=== PATIENT | male | born 2000 | race Caucasian/White ===

== ENCOUNTER 2019-08-24 10:33 | Outpatient (CLI) | payer OTHER, SELFPAY ==
--- NOTE | ~2019-08-24 | XR_ITS ---
EXAMINATION: XR soft tissue neck DATE: 08/24/2019 11:12 INDICATION: Throat pain. TECHNIQUE: 2 views of the neck soft tissues were obtained. COMPARISON: None. FINDINGS: The adenoids, palatine tonsils, prevertebral soft tissues, epiglottis, and airway are elias l. No radiopaque foreign body. IMPRESSION: 1. Normal neck soft tissues. Reviewed, dictated and finalized at location A.
--- NOTE | ~2019-08-24 | XR_ITS ---
EXAMINATION: XR barium swallow modified DATE: 08/24/2019 11:37 INDICATION: Pain in throat. TECHNIQUE: The patient was given barium-containing material of multiple consistencies to swallow by t jaden speech pathologist while I performed fluoroscopy. Fluoroscopy exposure time was 0.8 minutes. The n umber of fluoroscopy images saved to the PACS was 1. Dose-area product was 0.554 Gy-cm^2. FINDINGS: There was no laryngeal penetration or aspiration. IMPRESSION: 1. No laryngeal penetration or aspiration. 2. Please refer to the speech therapy report for recommendations. Reviewed, dictated and finalized at location A.
--- NOTE | 2019-08-24 13:01 | STOPEVAL ---
MODIFIED BARIUM SWALLOW EVALUATION: Thank you for referring Brad Allen to [facility]. Attending Provider: MD AVTAR Cameron Outpatient Evaluation Start: 08/24/19 12:38 Freq: Status: Active Protocol: Document 08/24/19 12:39 BECCLEMENTINART (Rec: 08/24/19 13:01 BECHERERT [email or web address]) Therapy Assessment Status Assessment Status Assessment Status Evaluation Outpatient Past Medical History Past Medical History No Past Medical/Surgical History Patient/Family Denies Significant Past Medical/ Surgical History Source of Past Medical History Patient Musculoskeletal History Hx Fractures Yes: tibia Hx Other Musculoskeletal Disorders Yes: shoulder repair Evaluation Information Problem Diagnosis throat pain Onset 6 months ago Pain Assessment Timing of Pain Assessment Timing of Pain Assessment Assessment Pain Scale Pain Scale Used Numeric (1 - 10) Self Report Pain Assessment Throat Reported Pain Level 4 Pain Score Pain Score 4: Self Report Modified Barium Swallow Evaluation Recent Swallowing History Reports Dysphagia No: denies choking or coughing ;throat pain Other Factors Impacting Dysphagia None Reported Difficult Consistencies Unable to Identify Intake Method Prior to Swallow Oral Evaluation Diet Prior to Swallow Evaluation Regular, Level 7 Liquid Consistency Prior to Swallow Thin (0) Evaluation Consistency Thin Uncontrolled 2 Method of Presentation Straw Oral Preparatory Symptoms None Oral Phase Symptoms None Pharyngeal Phase Symptoms None Severity of Vallecular Residue None - 0% No Residue Severity of Pyriform Sinus Residue None - 0% No Residue 8 Point Laryngeal Penetration-Aspiration Material Does Not Enter Airway Scale Cervical/Esophageal Symptoms None Thin Uncontrolled 1 Method of Presentation Cup Oral Preparatory Symptoms None Oral Phase Symptoms None Pharyngeal Phase Symptoms None Severity of Vallecular Residue None - 0% No Residue Severity of Pyriform Sinus Residue None - 0% No Residue 8 Point Laryngeal Penetration-Aspiration Material Does Not Enter Airway Scale Cervical/Esophageal Symptoms None Solid Consistency Uncontrolled 2 Other Amount cracker Method of Presentation Spoon Oral Preparatory Symptoms None Oral Phase Symptoms None Pharyngeal Phase Symptoms None Severity of Vallecular Residue None - 0% No Residue Severity of Pyriform Sinus Residue None - 0% No Residue 8 Point Laryngeal Penetration-Aspiration Material Does Not Enter Airway Scale
== END 2019-08-24 10:34 | disposition home or self-care (01) ==
PROVIDERS: PCP Internal Medicine; Visit Provider Internal Medicine
DX: R07.0 Pain in throat (principal)
CPT/HCPCS: 70360; 92611

== ENCOUNTER 2019-08-25 08:40 | Outpatient (CLI) | payer OTHER, SELFPAY ==
--- NOTE | ~2019-08-25 | XR_ITS ---
EXAMINATION: XR UGI wo kub DATE: 08/25/2019 09:14 INDICATION: Pain in throat. TECHNIQUE: The patient drank thick barium, gas-producing crystals, and thin barium. Fluoroscopy of th e esophagus, stomach, and proximal small bowel was performed. Fluoroscopy exposure time was 0.8 minut es. The total number of images was 233. Total dose-area product was 1.012 Gy-cm^2. COMPARISON: None. FINDINGS: There is no mass or stricture of the esophagus. Esophageal motility is normal. There is no hiatal hernia. There was no gastroesophageal reflux with provocative maneuvers. The stomach and proxi mal small bowel show normal folding patterns. IMPRESSION: 1. Normal upper gastrointestinal series. Reviewed, dictated and finalized at location A.
== END 2019-08-25 08:41 | disposition home or self-care (01) ==
LOC: ANHIMG 08:48
PROVIDERS: PCP Internal Medicine; Visit Provider Internal Medicine
DX: R07.0 Pain in throat (principal)
CPT/HCPCS: 74240

== ENCOUNTER 2020-01-06 16:56 | Outpatient (CLI) | payer OTHER, SELFPAY ==
--- NOTE | ~2020-01-06 | CT_ITS ---
EXAMINATION: CT sinus wo con DATE: 01/06/2020 17:18 INDICATION: Chronic sinusitis TECHNIQUE: Computed tomography (CT) of the paranasal sinuses was performed without intravenous contra st. Coronal reconstructions were obtained. Automated exposure control and iterative reconstruction te chnique were employed. The dose-length product was 324.57 mGy-cm. COMPARISON: None FINDINGS: Region of mild mucosal thickening in the bilateral maxillary sinuses. No mucosal thickening the remai nder of the paranasal sinuses. Bilateral ostiomeatal units are patent. Bilateral sania bullosa of th e middle turbinates. Nasal septum is midline. Bilateral mastoid air cells and middle ear cavities are clear. Bilateral orbits are normal. IMPRESSION: 1. Bilateral sania bullosa of the middle turbinates and small regions of mild mucosal thickening the bilateral maxillary sinuses. Reviewed, dictated and finalized at location A.
== END 2020-01-06 16:57 | disposition home or self-care (01) ==
PROVIDERS: PCP Internal Medicine; Visit Provider Internal Medicine
DX: J32.9 Chronic sinusitis, unspecified (principal); J34.89 Other specified disorders of nose and nasal sinuses
CPT/HCPCS: 70486

== ENCOUNTER 2021-08-08 12:54 | Emergency (ER) | payer OTHER, SELFPAY ==
--- NOTE | ~2021-08-08 | XR_ITS ---
XR foot LT min 3V 08/08/2021 13:09 INDICATION: Left foot pain after soccer injury PROCEDURE: 4 views left foot COMPARISON: No prior studies for comparison. FINDINGS: Fracture, dislocation or subluxation is not identified. Lisfranc joint intact. The soft tis sues appear within normal limits. No foreign bodies are identified. IMPRESSION: 1: NO ACUTE BONE OR JOINT ABNORMALITY IDENTIFIED. Reviewed, dictated and finalized at location A.
--- NOTE | 2021-08-08 12:57 | ED.LOWEXIN ---
HPI - Extremity Injury (Lower) General Chief Complaint: Extremity Injury, Lower Stated Complaint: left foot injury Time Seen by Provider: 08/08/21 12:57 Source: patient Mode of arrival: ambulatory Limitations: no limitations History of Present Illness HPI Narrative: Mr. Allen is a 21-year-old male patient presenting today with complaints of a left foot injury after playing soccer yesterday. He reports that he jumped up and came down on his foot and felt some pops. He thought at first it was his ankle that was injured but the top of his foot began to hurt. Reports some mild swelling and pain to touching the top of the foot near the ankle. Related Data Allergies Allergy/AdvReac Type Severity Reaction Status Date / Time mold Allergy Mild unknown Verified 06/12/21 15:52 Review of Systems Review of Systems: Pertinent positives per HPI. Patient denies any fever, chills, rash, headache, visual changes, dizziness, cough, runny nose, sore throat, shortness of breath, chest pain, palpitations, nausea, vomiting, diarrhea, constipation, abdominal pain, or any urinary issues. Is able to weight-bear with mild pain. PMFSH Past Medical History Medical History BMI 22.0-22.9, adult BMI 23.0-23.9, adult Depression Ear pain Follow up History of tremor No pertinent family history Seasonal allergies Throat pain Surgical History Surgical History History of orthopedic surgery shoulder and tibia repaired Family History Family History Other Diabetes mellitus Family history of rheumatoid arthritis Malignant neoplasm of prostate Social History Social History Smoking status: Never smoker Second hand tobacco smoke exposure: No Alcohol intake: current Comments At the time of my signature, I reviewed and agree with the nursing past medical, surgical, social, and family history. There is no relevant family history pertinent to the patient complaint. Exam Narrative: General: Well-developed, well nourished, in no apparent distress Head: Normocephalic, atraumatic Cardio: Regular rate and rhythm, s1 and s2 normal, no murmur appreciated. Resp: Clear to auscultation bilaterally, no rhonchi, rales, wheezing or rubs. Musculoskeletal: No deformity, tenderness to palpation of the left dorsal foot just superior of anterior ankle, mild swelling noted, pain with dorsiflexion against resistance, no pain with plantar flexion or valgus/varus testing, grossly normal range of motion, muscle strength strong and equal against resistance, pedal pulses strong, no cyanosis, normal gait and station Course Course Emergency Course: Portions of this record may have been created with voice recognition software. Level of Care: Express Care Visit Vital Signs Vital signs: Vital signs reviewed MDM - Extremity Injury (Lower) MDM Narrative Medical decision making narrative: At the time of assessment patient is resting comfortably on the exam table. After taking off his shoe and sock he has minimal swelling to the dorsal left foot. Tender to palpation over the dorsal left foot just superior of the ankle joint. No pain laterally or medially to the foot. Pain with dorsiflexion. X-ray was completed and was negative for any fractures or malalignment. I suspect foot sprain. Will give Nura wrap and explain rice treatment Differential Diagnosis Differential diagnosis: Likely ankle sprain and strain and other (Foot fracture, tendon tear, foot sprain) Imaging Data Attestation: I personally reviewed and interpreted this imaging study as follows: My impression: Negative for fracture or malalignment of the left foot Radiologist's impression: Express Care Zechariah Paz[address] [place] [address] [phone] XRay
[2021-08-08 13:24] VITALS: BP 132/68; PULSE 69; RESP 16; TEMP 36.6; O2SAT 98
== END 2021-08-08 13:25 | disposition home or self-care (01) ==
PROVIDERS: Emergency Provider Nurse Practitioner Family; PCP Internal Medicine
DX: S93.602A Unspecified sprain of left foot, initial encounter (principal); X50.9XXA Other and unspecified overexertion or strenuous movements or postures, initial encounter; Y93.66 Activity, soccer
CPT/HCPCS: 73630; 99213; G0463

== ENCOUNTER 2021-09-03 17:16 | Emergency (ER) | payer OTHER, SELFPAY ==
[2021-09-03 17:20] VITALS: BP 131/74; PULSE 71; RESP 20; TEMP 36.4; O2SAT 99
--- NOTE | 2021-09-03 17:56 | ED.MALEGU ---
HPI - Male Genitourinary General Chief complaint: Urogenital-Male Stated complaint: PAINFUL/FREQUENT URINATION Time Seen by Provider: 09/03/21 17:57 Source: patient, RN notes reviewed and old records reviewed Mode of arrival: ambulatory Limitations: no limitations History of Present Illness HPI Narrative: 21 year old male who presents to [facility] care with complaints of painful urination frequency at intermittent intervals for the past 1 month. Patient reports that he got tested for 6 STD's and was all negative last week. Patient denies any lower abdominal pain or any CVA tenderness on examination. Patient denies any testicular swelling or pain or any penile discharge or lesions. Patient denies any fevers chills or sweats. MD Complaint: dysuria Onset (ago): month(s) (1 month intermittent) Duration: intermittent Associated symptoms: Reports dysuria and other (frequency) Related Data Sexually active: Yes Allergies Allergy/AdvReac Type Severity Reaction Status Date / Time mold Allergy Mild unknown Verified 06/12/21 15:52 Review of Systems Review of Systems: CONSTITUTIONAL: Denies fever, chills, or sweats. EYES: Denies visual changes, redness, or discharge. ENT: Denies rhinorrhea, congestion, sore throat, or otalgia. CARDIOVASCULAR: Denies chest pain, palpitations, or edema. RESPIRATORY: Denies cough or dyspnea. GASTROINTESTINAL: Denies abdominal pain, nausea, vomiting, or diarrhea. GENITOURINARY: Positive for intermittent dysuria no hematuria. SKIN: Denies rash or itching. MUSCULOSKELETAL: Denies back pain, joint pain, or myalgia.No CVA tenderness on examination NEUROLOGIC: Denies headache, numbness, or weakness. PSYCHIATRIC: Denies anxiety or depression. All systems reviewed & are unremarkable except as noted in HPI and below [facility] Past Medical History Medical History BMI 22.0-22.9, adult BMI 23.0-23.9, adult Depression Ear pain Follow up History of tremor No pertinent family history Seasonal allergies Throat pain Surgical History Surgical History History of orthopedic surgery shoulder and tibia repaired Family History Family History Other Diabetes mellitus Family history of rheumatoid arthritis Malignant neoplasm of prostate Social History Social History Smoking status: Never smoker Second hand tobacco smoke exposure: No Alcohol intake: current Comments At time of signature, agree with nursing past medical, surgical, social and family history. There is no relevant family history pertinent to the presenting complaint Exam Narrative: GENERAL: Well-appearing, well-nourished, and in no acute distress. HEAD: Normocephalic, atraumatic. EYES: PERRLA and EOMI. ENT: Nares clear, no rhinorrhea or epistaxis. Mucous membranes moist.TM's normal with good light reflex, throat pink with no lesions or tonsil enlargement noted NECK: Supple. no lymphadenopathy CHEST: Clear to auscultation. No respiratory distress.SAO2 99% on room air HEART: Regular rate and rhythm. No murmur heard. Normal peripheral pulses. ABDOMEN: Soft, nontender, nondistended, normal active bowel sounds.No CVA tenderness on examination. EXTREMITIES: Normal range of motion. No edema. SKIN: Warm, dry, no rash. NEURO: No focal deficits. Alert and oriented x3. Course Course Level of Care: Express Care Visit Vital Signs Vital signs: Vital Signs Temperature 36.4 C L 09/03/21 17:20 Pulse Rate 71 09/03/21 17:20 Respiratory Rate 20 09/03/21 17:20 Blood Pressure 131/74 09/03/21 17:20 Pulse Oximetry 99 09/03/21 17:20 Temperature 36.4 C L 09/03/21 17:20 Pulse Rate 71 09/03/21 17:20 Respiratory Rate 20 09/03/21 17:20 Blood Pressure 131/74 09/03/21 17:20 Pulse Oximetry 99 09/03/21 17:20 [facility] - Mal
== END 2021-09-03 18:10 | disposition home or self-care (01) ==
PROVIDERS: Emergency Provider Registered Nurse
DX: N34.2 Other urethritis (principal)
CPT/HCPCS: 81003; 87086; 99213; G0463

== ENCOUNTER 2021-11-12 18:05 | Emergency (ER) | payer OTHER, SELFPAY ==
[2021-11-12 18:11] VITALS: BP 137/65; PULSE 83; RESP 16; TEMP 37.3; O2SAT 99
--- NOTE | 2021-11-12 18:24 | ED.GENADULT ---
HPI - General Adult General Chief complaint: Dental/Oral Stated complaint: sore in inner part of lower lip Time Seen by Provider: 11/12/21 18:15 Source: patient Mode of arrival: ambulatory Limitations: no limitations History of Present Illness HPI narrative: Patient presents today complaining of a sore on the right lower inner lip x2 days that has been painful. Pain is worsening since onset. Denies any recent illness. He has tried no [id number] treatment prior to arrival. States he has had 1 similar sore on the inner lip in the past 2 months and has had it checked for sexually transmitted infection and it was negative. Related Data Home Medications Medication Instructions Recorded Confirmed No Home Medications 11/12/21 11/12/21 Allergies Allergy/AdvReac Type Severity Reaction Status Date / Time mold Allergy Mild unknown Verified 11/12/21 18:14 Review of Systems Review of Systems: CONSTITUTIONAL: Denies body aches, fever, chills, or sweats. EYES: Denies visual changes, redness, or discharge. ENT: Denies rhinorrhea, congestion, sore throat, or otalgia.+ Mouth sore CARDIOVASCULAR: Denies chest pain, palpitations, or edema. RESPIRATORY: Denies cough or dyspnea. GASTROINTESTINAL: Denies abdominal pain, nausea, vomiting, or diarrhea. GENITOURINARY: Denies dysuria or hematuria. SKIN: Denies rash, itching, or wounds. MUSCULOSKELETAL: Denies back pain, joint pain, or myalgia. NEUROLOGIC: Denies headache, numbness, tingling, or weakness. PSYCH: Denies depression or anxiety. [facility] Past Medical History Medical History BMI 22.0-22.9, adult BMI 23.0-23.9, adult Depression Ear pain Follow up History of tremor No pertinent family history Seasonal allergies Throat pain Surgical History Surgical History History of orthopedic surgery shoulder and tibia repaired Family History Family History Other Diabetes mellitus Family history of rheumatoid arthritis Malignant neoplasm of prostate Social History Social History Smoking status: Never smoker Second hand tobacco smoke exposure: No Alcohol intake: current Comments At time of signature, I have reviewed and agree with nursing past medical, surgical, social and family history unless otherwise noted. Please see nursing chart for further information. There is no relevant family history pertinent to the presenting complaint Exam Narrative: GENERAL: Well-appearing, well-nourished, and in no acute distress. HEAD: Normocephalic, atraumatic. EYES: EOMI. No redness or drainage. Conjunctivae normal. ENT: Mucous membranes pink and moist. ~3mm round white ulceration surrounded by mild erythema to the right inner lower lip. NECK: Normal AROM. CHEST: No respiratory distress. EXTREMITIES: Normal range of motion. No edema. SKIN: Warm, dry, no rash. Capillary refill normal. Normal skin turgor. NEURO: No focal deficits. Alert and oriented x3. Gait steady. PSYCH: Normal affect. No signs of depression or anxiety. Course Course Level of Care: Express Care Visit Vital Signs Vital signs: Vital Signs Temperature 99.1 F 11/12/21 18:11 Pulse Rate 83 11/12/21 18:11 Respiratory Rate 16 11/12/21 18:11 Blood Pressure 137/65 11/12/21 18:11 Pulse Oximetry 99 11/12/21 18:11 Oxygen Delivery Room Air 11/12/21 18:11 Temperature 99.1 F 11/12/21 18:11 Pulse Rate 83 11/12/21 18:11 Respiratory Rate 16 11/12/21 18:11 Blood Pressure 137/65 11/12/21 18:11 Pulse Oximetry 99 11/12/21 18:11 Oxygen Delivery Room Air 11/12/21 18:11 Reviewed. Pt has been instructed to follow up with his PCP regarding his elevated blood pressure today. Medical Decision Making Differential Diagnosis Dif
== END 2021-11-12 18:36 | disposition home or self-care (01) ==
PROVIDERS: Emergency Provider Nurse Practitioner
DX: K12.0 Recurrent oral aphthae (principal)
CPT/HCPCS: 99211; G0463

== ENCOUNTER 2021-11-29 15:01 | Emergency (ER) | payer OTHER, SELFPAY ==
[2021-11-29 15:09] VITALS: BP 118/85; PULSE 74; RESP 20; TEMP 37.4; O2SAT 97
--- NOTE | 2021-11-29 15:10 | ED.SKABFB ---
HPI - Skin/Abscess/Foreign Bdy General Chief complaint: Skin/Abscess/Foreign Body Stated complaint: rash on left side shoulder Time Seen by Provider: 11/29/21 15:10 Source: patient Mode of arrival: ambulatory Limitations: no limitations History of Present Illness HPI narrative: 21-year-old male presents with complaint of itchy rash to left shoulder for several days. Patient states that he has been told that syphilis can cause a secondary rash. Was tested for syphilis approximately 3 months ago due to having a sore on his lip. States all testing was negative. No new partner since syphilis test. States rash popped up and the first thing he thought about was syphilis. Patient uses a electric razor to shave his chest and shoulder area. He also has a history of eczema. All systems reviewed and negative except as noted above. Related Data Allergies Allergy/AdvReac Type Severity Reaction Status Date / Time mold Allergy Mild unknown Verified 11/29/21 15:18 Review of Systems Review of Systems: CONSTITUTIONAL: Denies fever, chills, or sweats. EYES: Denies visual changes, redness, or discharge. ENT: Denies rhinorrhea, congestion, sore throat, or otalgia. CARDIOVASCULAR: Denies chest pain, palpitations, or edema. RESPIRATORY: Denies cough or dyspnea. GASTROINTESTINAL: Denies abdominal pain, nausea, vomiting, or diarrhea. GENITOURINARY: Denies dysuria or hematuria. SKIN: Reports itchy rash to left shoulder. MUSCULOSKELETAL: Denies back pain, joint pain, or myalgia. NEUROLOGIC: Denies headache, numbness, or weakness. PSYCHIATRIC: Denies anxiety or depression. All other systems reviewed are negative, except as documented in HPI. [facility] Past Medical History Medical History BMI 22.0-22.9, adult BMI 23.0-23.9, adult Depression Ear pain Follow up History of tremor No pertinent family history Seasonal allergies Throat pain Surgical History Surgical History History of orthopedic surgery shoulder and tibia repaired Family History Family History Other Diabetes mellitus Family history of rheumatoid arthritis Malignant neoplasm of prostate Social History Social History Smoking status: Never smoker Second hand tobacco smoke exposure: No Alcohol intake: current Comments At time of signature, agree with nursing past medical, surgical, social and family history. There is no relevant family history pertinent to the presenting complaint. Exam Narrative: GENERAL: This is a well-nourished, well-developed patient, in no apparent distress. HEAD: normocephalic, atraumatic. EYES: PERRL. Sclera clear/white. Vision is grossly intact. EARS: External ears normal NOSE: External nose normal NECK: Neck supple, non-tender without lymphadenopathy, masses or thyromegaly. CARDIOVASCULAR: Regular rate and rhythm without murmurs, gallops, or rubs. RESPIRATORY: Clear to auscultation. Breath sounds equal bilaterally. No wheezes, rales, or rhonchi. SKIN: warm, Dry, intact with no suspicious lesions, good texture and turgor. Pinkish macular rash to left shoulder. No drainage. No tenderness on palpation. There are no signs of infection. NEURO: awake, alert, and oriented to person, place and time. There were no obvious focal neurologic abnormalities. EXTREMITIES: No joint tenderness, effusion, or edema noted. Course Course Level of Care: Express Care Visit Vital Signs Vital signs: Vital Signs Temperature 37.4 C 11/29/21 15:09 Pulse Rate 74 11/29/21 15:09 Respiratory Rate 20 11/29/21 15:09 Blood Pressure 118/85 11/29/21 15:09 Pulse Oximetry 97 11/29/21 15:09 Oxygen Delivery Room Air 11/29/21 15:09 Temperature 37.4 C 11/29/21 15:09 Pulse Rate 74 11/29/21 15:09 Respir
== END 2021-11-29 15:24 | disposition home or self-care (01) ==
PROVIDERS: Emergency Provider Nurse Practitioner Family
DX: R21 Rash and other nonspecific skin eruption (principal)
CPT/HCPCS: 99213; G0463